=== PATIENT | female | born 1930 | race Caucasian/White ===

== ENCOUNTER → 2016-11-07 | Outpatient (CLI) | payer MEDICARE ==
[~2016-11-07] MED LIST: AMLO5TAB22 PO; B COTAB3 PO; CALC600T34 PO; ECOT81TA2 PO; ESTR1 PO; FENO50TA PO; KETO0.0210 EACH EYE; LEVO88TA2 PO; LEXA10TA PO; LOSA50 PO; LOVA40TA PO; NITR0.4S SL; OMEP20CA5 PO; REST0.05 OU; SUCR1TAB PO; TAB-TAB PO
[2016-11-07 10:30] LABS: AUTOMATED NEUTROPHIL # 2.5 TH/MM3 (1.8-7.7); BASOPHIL # 0.2 TH/MM3 (0-0.2); BASOPHIL % 2.6 % (0.0-2.0); EOSINOPHIL # 0.2 TH/MM3 (0-0.4); EOSINOPHIL % 4.2 % (0.0-4.0); HEMATOCRIT 35.3 % (35.0-46.0); HEMO FLAGS DIFF FINAL; LYMPH % 37.6 % (9.0-44.0); LYMPHOCYTE # 2.2 TH/MM3 (1.0-4.8); MEAN CELL VOLUME 87.8 FL (80.0-100.0); MEAN CORPUSCULAR HEMOGLOBIN 29.2 PG (27.0-34.0); MEAN CORPUSCULAR HGB CONC 33.3 % (32.0-36.0); MONO % 12.7 % (0.0-8.0); NEUT % 42.9 % (16.0-70.0); PLATELET COUNT 271 TH/MM3 (150-450); RED BLOOD COUNT 4.02 MIL/MM3 (4.00-5.30); RED CELL DISTRIBUTION WIDTH 13.9 % (11.6-17.2); WHITE BLOOD COUNT 5.9 TH/MM3 (4.0-11.0)
--- NOTE | 2016-11-07 19:36 | EKG ---
Date Performed: 11/07/2016 Time Performed: 10:16:37 PTAGE: 85 years EKG: SINUS BRADYCARDIA BORDERLINE ECG PREVIOUS TRACING : 11/17/2010 22.31 Compared to prior tracing no significant change DOCTOR: Buddy Kinsey Interpretating Date/Time 11/07/2016 19:34:20
== END ==
LOC: CLAB 09:47
PROVIDERS: ATTEND Surgery
DX: C50.919 Malignant neoplasm of unspecified site of unspecified female breast (principal); R00.1 Bradycardia, unspecified
CPT/HCPCS: 36415; 85025; 93005

== ENCOUNTER 2016-11-14 22:32 | Emergency (ER) | payer MEDICARE ==
[~2016-11-14] VITALS: Ht 165.1 cm; Wt 68.0 kg
[~2016-11-14 22:32] MED LIST changes: -BUPIVACAINE HCL PF 0.25% 30 ML VIAL ONE; -BUPIVACAINE HCL PF 0.5% 30 ML VIAL ONE; -BUPIVACAINE/EPINEPHRINE 0.5% PF 30 ML VIAL ONE; -ISOSULFAN BLUE 50 MG/5 ML VIAL SQ ONE; -KETOROLAC TROMETHAMINE 30 MG/ML (IVP) VIAL ONE; -LACTATED RINGER'S 1000 ML INJ 1,000 ML ONE; -MIDAZOLAM HCL 2 MG/2 ML VIAL ONE; -ONDANSETRON HCL 4 MG/2 ML VIAL IV PUSH ONE; -ONDANSETRON HCL 4 MG/2 ML VIAL ONE; -PROPOFOL 200 MG/20 ML AMP IV ONE; -SODIUM CHLORIDE 0.9% INJ 10 ML ONE; -ceFAZolin 2 GM PREMIX 50 ML ONE; -oxyCODONE/ACETAMINOPHEN 5 MG/325 MG TAB ONE
[2016-11-14 22:36] VITALS: BP 203/83; PULSE 68; RESP 14; TEMP 98; O2SAT 96
--- NOTE | 2016-11-14 23:23 | PD ---
HPI Chief Complaint: Bleeding Time Seen by Provider: 22:55 Travel History International Travel<30 days: No Contact w/Intl Traveler<30days: No Traveled to known affect area: No History of Present Illness HPI 85-year-old female complains of bleeding from her surgical site on the left chest. Patient has history of breast cancer status post left-sided mastectomy this afternoon around 1:30. Patient was discharged home and started noticed increasing bleeding from the left chest surgical site. Patient otherwise denies any chest pain or shortness of breath. Patient has a drain in place. PFSH Past Medical History Asthma: No Autoimmune Disease: No Blood Disorders: No Anxiety: No Depression: No Heart Rhythm Problems: No Cancer: Yes (BREAST) Cardiovascular Problems: Yes (CABGx2 ) High Cholesterol: Yes Chemotherapy: No Chest Pain: Yes Congestive Heart Failure: No COPD: No Diabetes: No Diminished Hearing: No Endocrine: Yes Gastrointestinal Disorders: Yes GERD: Yes Glaucoma: No Genitourinary: Yes (bladder lifted) Headaches: No Hepatitis: No Hiatal Hernia: No Hypertension: No Kidney Stones: No Medical other: Yes (GERD) Musculoskeletal: Yes Neurologic: No Psychiatric: No Reproductive: No Respiratory: No Immunizations Current: Yes Myocardial Infarction: Yes (secondary to clot or plaque during LAD angioplasty) Radiation Therapy: No Renal Failure: No Seizures: No Sickle Cell Disease: No Sleep Apnea: Yes Thyroid Disease: Yes (hypothyroid ) Ulcer: No Tetanus Vaccination: > 5 Years Influenza Vaccination: Yes Past Surgical History Abdominal Surgery: Yes (nelson, appy) AICD: No Appendectomy: Yes Body Medical Devices: n/a Cardiac Surgery: Yes (cabg 1991, 1993, stent 2001 coded) Cholecystectomy: Yes Coronary Artery Bypass Graft: Yes Coronary Stent: Yes (1x) Ear Surgery: No Endocrine Surgery: Yes Eye Surgery: Yes (RIGHT CATARACT SX) Gynecologic Surgery: Yes (hysterectomy; 09/03 COLPORRHAPHY AND ANTERIOR REPAIR) Hysterectomy: Yes Neurologic Surgery: Yes (LUMBAR LAMINECTOMY ) Oral Surgery: Yes (full dental extraction 1952) Pacemaker: No Thoracic Surgery: Yes (left masectomy 10/2016) Tonsillectomy: Yes Other Surgery: Yes Social History Alcohol Use: Yes Tobacco Use: Yes (quit 12 yrs ago;smoked 1pk/day x35 yrs) Substance Use: No Allergies-Medications (Allergen,Severity, Reaction): Coded Allergies: No Known Allergies (Verified , 11/14/16) Reported Meds & Prescriptions Reported Meds & Active Scripts Active Reported Restasis (Cyclosporine) 0.05 % Emu 1 Drop OU BID Lovastatin 40 Mg Tab 2 Tab PO DAILY Losartan Potassium 50 Mg Tab 1 Tab PO DAILY Amlodipine Besylate 5 mg (Amlodipine Besylate) 5 Mg Tab 1 Tab PO DAILY Lexapro (Escitalopram Oxalate) 10 Mg Tab 10 Mg PO DAILY Levothyroxine 88 mcg (Levothyroxine Sodium) 88 Mcg Tab 88 Mcg PO DAILY Carafate 1 Gm Tab (Sucralfate) 1 Gm Tab 1 Gm PO QID Take with water on an empty stomach. To reduce the potential of adversely affecting the absorption of other drugs, take other drugs 2 hours prior to Sucralfate. Zaditor (Ketotifen Fumarate (Ophth)) 0.025 % Garret 1 Drop EACH EYE BID B Complex (Vitamin B Complex) Tab 1 Cap PO DAILY Prilosec 20 mg (Omeprazole) 20 Mg Capcr 20 Mg PO DAILY Nitrostat (Nitroglycerin) 0.4 Mg Subl 0.4 Mg SL PRN 1 TAB SL EVERY 5 MINS X 3 PRN CHEST PAIN Tricor (Fenofibrate) 145 Mg Tab 145 Mg PO DAILY Calcium 600 Mg Tab 600 Mg PO BID Ecotrin (Aspirin) 81 Mg Tabec 81 Mg PO DAILY Estrace (Estradiol) 1 Mg Tab 1 Mg PO DAILY Multivitamin (Multivitamins) 1 Tab Tab 1 Tab PO DAILY Review of Systems General / Constitutional: No: Fever Eyes: No: Visual changes HENT: No: Headaches Cardiovascular: No: Chest Pain or Discomfort Respiratory: No: Shortness of Breath Gastrointestinal: No: Abdominal Pain Genitourinary: No: Dysuria Musculoskeletal: No: Pain Skin: No Rash Neurologic: No: Weakness Psychiatric: No: Depression Endocrine: No: Polydipsia Hematologic/Lymphatic: No: Easy Bruising Physical Exam Narrative GENERAL: Well-nourished, well-developed patient. SKIN: Warm and dry. HEAD: Normocephalic. EYES: No scleral icterus. No injection or drainage. NECK: Supple, trachea midline. No JVD or lymphadenopathy. CARDIOVASCULAR: Regular rate and rhythm without murmurs, gallops, or rubs. RESPIRATORY: Breath sounds equal bilaterally. No accessory muscle use. GASTROINTESTINAL: Abdomen soft, non-tender, nondistended. MUSCULOSKELETAL: No cyanosis, or edema. BACK: Nontender without obvious deformity. No CVA tenderness. Examination of the chest wall reveals a surgical wound on the left chest with sutures in place. Drain in place and draining well. No active bleeding. Data Data Last Documented VS Vital Signs Date Time Temp Pulse Resp B/P Pulse Ox O2 Delivery O2 Flow Rate FiO2 11/14/16 22:36 98.0 68 14 203/83 96 Room Air MDM Medical Decision Making Medical Screen Exam Complete: Yes Emergency Medical Condition: Yes Differential Diagnosis Differential diagnosis including wound check, bleeding problem. Narrative Course 85-year-old female is here for bleeding from surgical wound. Status post left mastectomy this afternoon. The wound is draining well. No evidence of active bleeding. Dressing was changed. 23:30 PM. I spoke with Dr. Hodge. Advised to follow up with her in the office. Diagnosis Primary Impression: Encounter for post surgical wound check Patient Instructions: General Instructions Additional Instructions: Wound care daily. Follow-up with personal physician and surgeon. Return if increasing bleeding. Med/Other Pt SpecificInfo: No Change to Meds Disposition: 01 DISCHARGE HOME Condition: Stable Dustin Perea MD Nov 14, 2016 23:23
== END 2016-11-15 00:33 | disposition home or self-care (01) ==
LOC: NEPC 22:32
DX: Z48.3 Aftercare following surgery for neoplasm (principal); C50.912 Malignant neoplasm of unspecified site of left female breast
CPT/HCPCS: 99282

== ENCOUNTER → 2016-11-14 | Day surgery (SDC) | payer MEDICARE ==
[~2016-11-14] MED LIST changes: +BUPIVACAINE HCL PF 0.25% 30 ML VIAL ONE; +BUPIVACAINE HCL PF 0.5% 30 ML VIAL ONE; +BUPIVACAINE/EPINEPHRINE 0.5% PF 30 ML VIAL ONE; +ISOSULFAN BLUE 50 MG/5 ML VIAL SQ ONE; +KETOROLAC TROMETHAMINE 30 MG/ML (IVP) VIAL ONE; +LACTATED RINGER'S 1000 ML INJ 1,000 ML ONE; +MIDAZOLAM HCL 2 MG/2 ML VIAL ONE; +ONDANSETRON HCL 4 MG/2 ML VIAL IV PUSH ONE; +ONDANSETRON HCL 4 MG/2 ML VIAL ONE; +PROPOFOL 200 MG/20 ML AMP IV ONE; +SODIUM CHLORIDE 0.9% INJ 10 ML ONE; +ceFAZolin 2 GM PREMIX 50 ML ONE; +oxyCODONE/ACETAMINOPHEN 5 MG/325 MG TAB ONE
--- NOTE | 2016-11-14 15:54 | TN ---
cc: ALENA DODSON DATE OF SURGERY: 11/14/2016 PRINCIPAL DIAGNOSIS Left breast cancer multifocal PROCEDURE PERFORMED Left mastectomy and left axillary sentinel lymph node biopsy. SURGEON Alena Dodson MD ANESTHESIA General via LMA device. INDICATION The patient is an 85-year-old female with newly diagnosed multifocal left breast cancer. She has opted for mastectomy without reconstruction and now presents for the procedure. FINDINGS AT THE TIME OF SURGERY: There was a palpable induration in the upper outer portion of the left breast. Three sentinel lymph nodes were identified. Number 1 had a count of 6,665 and was 1+ blue, #2 had a count of 126 and was not blue and #3 had a count of 120 and was not blue. Touch prep analysis was not performed. PROCEDURE PERFORMED After informed consent was obtained and site verification was performed, the patient was brought to the radiology suite where she underwent peritumoral radionuclide injection. She was then brought to the major operating room where she underwent general anesthesia via LMA device. She was given a single dose of IV Ancef and sequential compression hose were placed. The left breast and arm were prepped and draped in sterile fashion, 5 cc of half-strength Lymphazurin were injected in the subareolar left breast and a 5-minute massage was performed. A classic elliptical mastectomy incision was marked out and 200 cc of tumescent solution mixed with 30 cc of Marcaine with epinephrine were then infiltrated circumferentially around the breast in the plane between the subcutaneous fat and anterior breast fascia. Sharp dissection was performed in the same plane between the subcutaneous fat and anterior breast fascia superiorly to the clavicle, medially to the parasternal area, laterally to the axilla and inferiorly to the anterior rectus sheath. The breast was then dissected off the pectoralis muscle using electrocautery to include the clavipectoral fascia with the specimen. The specimen was oriented with the skin anterior, one short suture superiorly, and one long suture laterally. Good hemostasis was noted on the left chest wall. The clavipectoral fascia was then divided and the level I axilla was entered through the mastectomy incision. The latissimus dorsi muscle and thoracodorsal neurovascular bundle as well as the intercostal brachial, axillary, and long thoracic were all identified and remained intact throughout the dissection. Some upper level I lymph nodes were identified near the axillary vein and these were carefully dissected free from surrounding structures using the harmonic scalpel with the counts as noted. Good hemostasis was noted and the lymph nodes were sent for permanent pathologic evaluation. The axillary wound was closed using interrupted 3-0 Vicryl and 4-0 Monocryl subcuticular suture. Steri-Strips and sterile dressings were applied to both wounds. The patient tolerated the procedure well with an estimated blood loss that was minimal and she was extubated in the operating room and brought to the recovery room in good condition. All sponge and needle counts were correct at the conclusion of the case. MD ERICKA Lipscomb/JENNIFER /3:20 PM /3:31 PM
== END | disposition home or self-care (01) ==
LOC: ESDC 09:39
PROVIDERS: ATTEND Surgery
DX: C50.412 Malignant neoplasm of upper-outer quadrant of left female breast (principal); Z48.3 Aftercare following surgery for neoplasm
CPT/HCPCS: 00400; 01610; 19303; 38525; 38792; 88307; 88309; 99282; J0690; J1885; J2250; J2405; J3010; J7120; Q9968

== ENCOUNTER → 2016-12-14 | Outpatient (CLI) | payer MEDICARE ==
[2016-12-14 11:06] LABS: AUTOMATED NEUTROPHIL # 2.8 TH/MM3 (1.8-7.7); BASOPHIL # 0.1 TH/MM3 (0-0.2); BASOPHIL % 2.5 % (0.0-2.0); EOSINOPHIL # 0.3 TH/MM3 (0-0.4); EOSINOPHIL % 5.2 % (0.0-4.0); HEMATOCRIT 34.5 % (35.0-46.0); HEMO FLAGS DIFF FINAL; LYMPH % 32.4 % (9.0-44.0); LYMPHOCYTE # 1.8 TH/MM3 (1.0-4.8); MEAN CELL VOLUME 85.1 FL (80.0-100.0); MEAN CORPUSCULAR HEMOGLOBIN 29.3 PG (27.0-34.0); MEAN CORPUSCULAR HGB CONC 34.5 % (32.0-36.0); MONO % 10.6 % (0.0-8.0); NEUT % 49.3 % (16.0-70.0); PLATELET COUNT 334 TH/MM3 (150-450); RED BLOOD COUNT 4.05 MIL/MM3 (4.00-5.30); RED CELL DISTRIBUTION WIDTH 13.8 % (11.6-17.2); WHITE BLOOD COUNT 5.6 TH/MM3 (4.0-11.0)
[2016-12-14 11:27] LABS: ALT (GPT) 30 U/L (10-53); ANION GAP 7 MEQ/L (5-15); AST (GOT) 27 U/L (15-37); BICARBONATE 28.4 MEQ/L (21.0-32.0); BLOOD UREA NITROGEN 13 MG/DL (7-18); CHLORIDE 99 MEQ/L (98-107); GLOMERULAR FILTRATION RATE 48 ML/MIN (>89); GLUCOSE,FASTING 97 MG/DL (74-99); POTASSIUM 4.1 MEQ/L (3.5-5.1); SODIUM (NA) 134 MEQ/L (136-145)
[2016-12-14 11:36] LABS: ALKALINE PHOSPHATASE 20 U/L (45-117); FREE T4 0.99 NG/DL (0.76-1.46); HDL CHOLESTEROL 55.2 MG/DL (40.0-60.0); TOTAL BILIRUBIN ADULT 0.4 MG/DL (0.2-1.0)
[2016-12-14 11:45] LABS: LDL CHOLESTEROL 79 MG/DL (0-99)
== END ==
LOC: CLAB 10:21
PROVIDERS: ATTEND Internal Medicine Interventional Cardiology
DX: I11.9 Hypertensive heart disease without heart failure (principal); I65.23 Occlusion and stenosis of bilateral carotid arteries; I25.10 Atherosclerotic heart disease of native coronary artery without angina pectoris; E78.2 Mixed hyperlipidemia; Z79.899 Other long term (current) drug therapy; I10 Essential (primary) hypertension; E03.2 Hypothyroidism due to medicaments and other exogenous substances
CPT/HCPCS: 36415; 80053; 80061; 84439; 84443; 84480; 85025

== ENCOUNTER → 2017-03-26 | Outpatient (CLI) | payer MEDICARE ==
[~2017-03-26] MED LIST changes: +REST0.05 EACH EYE
[2017-03-26 11:43] LABS: AUTOMATED NEUTROPHIL # 4.2 TH/MM3 (1.8-7.7); BASOPHIL # 0.1 TH/MM3 (0-0.2); BASOPHIL % 1.2 % (0.0-2.0); EOSINOPHIL # 0.2 TH/MM3 (0-0.4); EOSINOPHIL % 2.9 % (0.0-4.0); HEMATOCRIT 33.1 % (35.0-46.0); HEMO FLAGS DIFF FINAL; MEAN CELL VOLUME 86.4 FL (80.0-100.0); MEAN CORPUSCULAR HEMOGLOBIN 28.5 PG (27.0-34.0); MONO % 17.3 % (0.0-8.0); NEUT % 63.6 % (16.0-70.0); PLATELET COUNT 345 TH/MM3 (150-450); RED BLOOD COUNT 3.83 MIL/MM3 (4.00-5.30); RED CELL DISTRIBUTION WIDTH 12.7 % (11.6-17.2); WHITE BLOOD COUNT 6.6 TH/MM3 (4.0-11.0)
[2017-03-26 12:25] LABS: FREE T4 1.17 NG/DL (0.76-1.46)
== END ==
LOC: CLAB 10:40
PROVIDERS: ATTEND Family Medicine
DX: E03.2 Hypothyroidism due to medicaments and other exogenous substances (principal); R53.83 Other fatigue; D64.9 Anemia, unspecified
CPT/HCPCS: 36415; 82607; 83540; 84439; 84443; 84480; 85025

== ENCOUNTER → 2017-05-13 | Outpatient (CLI) | payer MEDICARE ==
[~2017-05-13] MED LIST changes: +AMLO5TAB2 PO; -AMLO5TAB22 PO; +ANAS1 PO; +ASPI-147 PO; -B COTAB3 PO; +CALC1TAB87 PO; -CALC600T34 PO; +DENO60P SQ; +DOCU1CAP23 PO; -ECOT81TA2 PO; -ESTR1 PO; -FENO50TA PO; +HYDR25TA5 PO; -KETO0.0210 EACH EYE; -LEXA10TA PO; +LEXA20TA PO; -LOSA50 PO; +LOSA50TA PO; +MULTTAB67 PO; +NITR.3 SL; -NITR0.4S SL; -OMEP20CA5 PO; +OMEP20TA PO; -REST0.05 OU; -SUCR1TAB PO; -TAB-TAB PO; +VITATAB11 PO
[2017-05-13 10:57] LABS: AUTOMATED NEUTROPHIL # 2.5 TH/MM3 (1.8-7.7); BASOPHIL # 0.1 TH/MM3 (0-0.2); BASOPHIL % 1.7 % (0.0-2.0); EOSINOPHIL # 0.2 TH/MM3 (0-0.4); EOSINOPHIL % 4.6 % (0.0-4.0); HEMATOCRIT 33.2 % (35.0-46.0); HEMO FLAGS DIFF FINAL; LYMPH % 23.5 % (9.0-44.0); LYMPHOCYTE # 1.1 TH/MM3 (1.0-4.8); MEAN CELL VOLUME 85.7 FL (80.0-100.0); MEAN CORPUSCULAR HEMOGLOBIN 28.1 PG (27.0-34.0); MEAN CORPUSCULAR HGB CONC 32.8 % (32.0-36.0); MONO % 16.2 % (0.0-8.0); PLATELET COUNT 279 TH/MM3 (150-450); RED BLOOD COUNT 3.87 MIL/MM3 (4.00-5.30); RED CELL DISTRIBUTION WIDTH 14.5 % (11.6-17.2); WHITE BLOOD COUNT 4.6 TH/MM3 (4.0-11.0)
== END ==
LOC: CLAB 10:33
PROVIDERS: ATTEND Family Medicine
DX: D64.9 Anemia, unspecified (principal); R53.83 Other fatigue
CPT/HCPCS: 36415; 82607; 83540; 85025

== ENCOUNTER → 2017-05-24 | Outpatient (CLI) | payer MEDICARE ==
[2017-05-24 10:07] LABS: FREE T4 1.04 NG/DL (0.76-1.46); HDL CHOLESTEROL 57.1 MG/DL (40.0-60.0); INDIRECT BILIRUBIN 0.3 MG/DL (0.0-0.8); TOTAL BILIRUBIN ADULT 0.4 MG/DL (0.2-1.0)
== END ==
LOC: CLAB 09:03
PROVIDERS: ATTEND Family Medicine
DX: E78.2 Mixed hyperlipidemia (principal); E03.2 Hypothyroidism due to medicaments and other exogenous substances; Z79.899 Other long term (current) drug therapy
CPT/HCPCS: 36415; 80061; 80076; 84439; 84443; 84480

== ENCOUNTER → 2017-06-05 | Outpatient (CLI) | payer MEDICARE ==
[2017-06-05 10:24] LABS: BICARBONATE 26.2 MEQ/L (21.0-32.0); POTASSIUM 4.1 MEQ/L (3.5-5.1)
== END ==
LOC: CLAB 09:17
PROVIDERS: ATTEND Internal Medicine Interventional Cardiology
DX: I25.10 Atherosclerotic heart disease of native coronary artery without angina pectoris (principal); I73.9 Peripheral vascular disease, unspecified; I11.9 Hypertensive heart disease without heart failure; E78.2 Mixed hyperlipidemia; I65.23 Occlusion and stenosis of bilateral carotid arteries
CPT/HCPCS: 80048

== ENCOUNTER → 2017-11-19 | Outpatient (CLI) | payer MEDICARE ==
[~2017-11-19] MED LIST changes: -OMEP20TA PO; +OMEP20TA93 PO
[2017-11-19 10:47] LABS: BASOPHIL # 0.1 TH/MM3 (0-0.2); BASOPHIL % 2.5 % (0.0-2.0); EOSINOPHIL # 0.2 TH/MM3 (0-0.4); EOSINOPHIL % 5.6 % (0.0-4.0); HEMATOCRIT 36.6 % (35.0-46.0); HEMOGLOBIN 12.3 GM/DL (11.6-15.3); LYMPH % 28.6 % (9.0-44.0); LYMPHOCYTE # 1.2 TH/MM3 (1.0-4.8); MEAN CELL VOLUME 87.4 FL (80.0-100.0); MEAN CORPUSCULAR HEMOGLOBIN 29.4 PG (27.0-34.0); MEAN CORPUSCULAR HGB CONC 33.7 % (32.0-36.0); MEAN PLATELET VOLUME 7.6 FL (7.0-11.0); MONO % 15.8 % (0.0-8.0); MONOCYTE # 0.7 TH/MM3 (0-0.9); NEUT % 47.5 % (16.0-70.0); PLATELET COUNT 253 TH/MM3 (150-450); RED BLOOD COUNT 4.19 MIL/MM3 (4.00-5.30); RED CELL DISTRIBUTION WIDTH 14.6 % (11.6-17.2); WHITE BLOOD COUNT 4.2 TH/MM3 (4.0-11.0)
[2017-11-19 11:08] LABS: ALBUMIN 3.6 GM/DL (3.4-5.0); AST (GOT) 54 U/L (15-37); BICARBONATE 27.2 MEQ/L (21.0-32.0); BLOOD UREA NITROGEN 11 MG/DL (7-18); CHLORIDE 95 MEQ/L (98-107); CREATININE 0.89 MG/DL (0.50-1.00); GLOMERULAR FILTRATION RATE 60 ML/MIN (>89); GLUCOSE,FASTING 111 MG/DL (74-99); SODIUM (NA) 131 MEQ/L (136-145)
[2017-11-19 11:09] LABS: ALT (GPT) 55 U/L (10-53); CHOLESTEROL 137 MG/DL (120-200); TRIGLYCERIDES 141 MG/DL (42-150)
[2017-11-19 11:18] LABS: ALKALINE PHOSPHATASE 22 U/L (45-117); CHOLESTEROL/ HDL RATIO 2.78 RATIO; FREE T4 1.07 NG/DL (0.76-1.46); HDL CHOLESTEROL 49.2 MG/DL (40.0-60.0); LDL CHOLESTEROL 60 MG/DL (0-99); TOTAL BILIRUBIN ADULT 0.3 MG/DL (0.2-1.0); TOTAL PROTEIN 7.7 GM/DL (6.4-8.2)
[2017-11-19 11:20] LABS: TOTAL T3 131 NG/DL (60-181)
[2017-11-19 11:21] LABS: RHEUMATOID FACTOR SCREEN NEGATIVE (NEGATIVE)
== END ==
LOC: CLAB 10:12
PROVIDERS: ATTEND Family Medicine
DX: E78.2 Mixed hyperlipidemia (principal); E03.2 Hypothyroidism due to medicaments and other exogenous substances; I10 Essential (primary) hypertension; D64.9 Anemia, unspecified; Z79.899 Other long term (current) drug therapy
CPT/HCPCS: 36415; 80053; 80061; 84439; 84443; 84480; 85025; 86430

== ENCOUNTER 2018-08-31 12:31 | Observation (INO) ==
[2018-08-31] MEDS ORDERED: Sodium Chlor 0.9% Inj 500 ML IV.SIG SCH (13:00)
--- NOTE | 2018-08-31 13:18 | XR ---
EXAM DATE: 08/31/2018 1:12 PM EST AGE/SEX: 87 years / Female INDICATIONS: Syncopal episode today. Patient denies chest pain or shortness of breath. CLINICAL DATA: This is the patient's initial encounter. Patient reports that signs and symptoms have been present for 1 day and indicates a pain score of 0/10. MEDICAL/SURGICAL HISTORY: Hypertension. CABG. COMPARISON: [facility], XR CHEST PA AND LAT, 02/24/2018. . FINDINGS: There is no appreciable pleural effusion for technique. Heart and mediastinum are unrema rkable. There is scarring and pleural thickening in the apices bilaterally. In the left apex of the lung, however there is parenchymal process not present on the older exams may represent superimposed pneumonia. COPD changes are seen. CONCLUSION: There is COPD with apical scarring bilaterally worse on the left with probable superimpos ed pneumonia left upper lobe in the apex of the lung. Follow up is suggested with repeat chest x-ray or noncontrast chest CT in 4-6 weeks after appropriate clinical therapy. Electronically signed by: Jose Miguel Mohamud MD Board Certified Radiologist 08/31/2018 1:17 PM EST
[2018-08-31 13:27] LABS: Baso % (Auto) 0.6 % (0.0-2.0); Eos # (Auto) 0.1 th/mm3 (0.0-0.4); Eos % (Auto) 1.6 % (0.0-4.0); Hemoglobin 11.2 gm/dL (11.6-15.3); Lymph # (Auto) 1.5 th/mm3 (1.0-4.8); Lymph % (Auto) 20.7 % (9.0-44.0); Mean Corpuscular HGB Conc 33.9 % (32.0-36.0); Mean Corpuscular Hemoglobin 30.2 pg (27.0-34.0); Mean Corpuscular Volume 89.1 fL (80.0-100.0); Mono # (Auto) 0.9 th/mm3 (0.0-0.9); Neut # (Auto) 4.8 th/mm3 (1.8-7.7); Neut % (Auto) 65.1 % (16.0-70.0); Platelet Count 278 th/mm3 (150-450); Red Blood Count 3.71 mil/mm3 (4.00-5.30); Red Cell Distribution Width 14.3 % (11.6-17.2); White Blood Count 7.4 th/mm3 (4.0-11.0)
--- NOTE | 2018-08-31 13:34 | ED ---
HPI General Chief Complaint: Syncope Stated Complaint: Syncope Time Seen by Provider: 08/31/18 12:34 Source: patient and EMS Mode of arrival: EMS Limitations: no limitations History of Present Illness HPI narrative: 87-year-old female who presents to the ED for evaluation of syncopal episode. 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 Per patient this has happened once before when she was admitted to the hospital after she had surgery. She states that he felt kind of similar to that. She denies hitting her head and per EVAC reports she was helped into the floor. She herself does not recall how long she was out and now she states that she feels fine other than feeling somewhat sleepy. She does take Plavix. She denies any urinary or bowel movement issues. Her only complaint is that she has been having some cough that has been ongoing for a couple of months now. She has a history of breast cancer and had radiation and surgery. She denies any chemotherapy at this time. She denies any nausea or vomiting. No fevers chills or sweats. No diarrhea. No bleeding. No pain. She does have a history of heart disease. Related Data Home Medications Medication Instructions Recorded Confirmed cilostazol 100 mg PO BID 08/31/18 08/31/18 clopidogrel [Plavix] 75 mg PO DAILY 08/31/18 08/31/18 Allergies Allergy/AdvReac Type Severity Reaction Status Date / Time No Known Allergies Allergy Verified 08/31/18 12:49 Review of Systems ROS: all other systems reviewed are negative [facility] Medical History Medical History Breast CA (Acute) DVT (deep venous thrombosis) (Acute) History of hysterectomy (Acute) Hypertension (Acute) Hypothyroidism (Acute) Surgical History Surgical History Hx of cholecystectomy (Acute) Hx of heart bypass surgery (Acute) Hx of tonsillectomy (Acute) Social History Social History Substance History: No History of Abuse Smoking Status: Former smoker How Often Do You Have a Drink Containing Alcohol: Monthly or less Recent Travel in [facility] within the Last 8 Weeks: No Recent Out of Country Travel within the Last 8 Weeks: No Immunization History Tetanus Immunization: Unsure Exam Narrative Exam Narrative: GENERAL: Well-appearing SKIN: Focused skin assessment warm/dry. HEAD: Atraumatic. Normocephalic. EYES: Pupils equal and round. No scleral icterus. No injection or drainage. ENT: No nasal bleeding or discharge. Mucous membranes pink and moist. Tongue is midline. No uvula deviation. NECK: Trachea midline. No JVD. CARDIOVASCULAR: Regular rate and rhythm. No murmur appreciated. RESPIRATORY: No accessory muscle use. Clear to auscultation. Breath sounds equal bilaterally. GASTROINTESTINAL: Abdomen soft, non-tender, nondistended. Hepatic and splenic margins not palpable. MUSCULOSKELETAL: No obvious deformities. No clubbing. No cyanosis. No edema. Full range of motion of the upper and lower extremities bilaterally. 2+ pulses bilaterally. No lumbar, thoracic, cervical spine tenderness to palpation. NEUROLOGICAL: Awake and alert. No obvious cranial nerve deficits. Motor grossly within normal limits. Normal speech. PSYCHIATRIC: Appropriate mood and affect; insight and judgment normal. Course Initial Documented Vital Signs Temperature 98.2 F 08/31/18 12:40 Pulse Rate 70 08/31/18 12:40 Respiratory Rate 18 08/31/18 12:40 Blood Pressure 160/72 H 08/31/18 12:40 Pulse Oximetry 97 08/31/18 12:40 Last Documented Vital Signs Temperature 98.2 F 08/31/18 12:40 Pulse Rate 74 08/31/18 12:46 Respiratory Rate 18 08/31/18 12:40 Blood Pressure 160/72 H 08/31/18 12:40 Pulse Oximetry 98 08/31/18 12:46 Medical Decision Making MDM Narrative Medical decision making narrative: 87-year-old female who presents to the ED for evaluation of syncope. Patient was properly examined was found to have signs and symptoms consistent with syncope. Labs and imaging were ordered. Labs and imaging were positive for what appears to be hyponatremia as well as orthostatic hypotension. Because of her age and history of recommendations for admission for further evaluation. Chest x-ray did show an abnormality on the left lower lung. He believes that it may be pneumonia but at this time because of this and recent syncope my attending recommends CTA to rule out PE as well as to see what this mass could be. Patient has been chronically hyponatremic but her sodium is now at 124. This is new for her. Case was discussed with Dr. Pearl who agrees to admission to his service. Medical Screen Exam Complete: Yes Emergency Medical Condition: Yes Differential Diagnosis Differential Diagnosis: Electron abnormality versus syncope versus anemia versus bleeding versus orthostatic hypotension versus ACS Medical Records Medical records reviewed: Yes I reviewed the patient's medical records. Lab Data Lab results reviewed: Yes I reviewed the patient's lab results. Result diagrams: 08/31/18 13:00 08/31/18 13:00 Lab Results 08/31/18 08/31/18 Range/Units 13:00 13:00 WBC 7.4 (4.0-11.0) th/mm3 RBC 3.71 L (4.00-5.30) mil/mm3 Hgb 11.2 L (11.6-15.3) gm/dL Hct 33.0 L (35.0-46.0) % MCV 89.1 (80.0-100.0) fL MCH 30.2 (27.0-34.0) pg MCHC 33.9 (32.0-36.0) % RDW 14.3 (11.6-17.2) % Plt Count 278 (150-450) th/mm3 MPV 7.0 (7.0-11.0) fL Prelim Diff (Auto) Slide review pending Neut % (Auto) 65.1 (16.0-70.0) % Lymph % (Auto) 20.7 (9.0-44.0) % Blount % (Auto) 12.0 H (0.0-8.0) % Eos % (Auto) 1.6 (0.0-4.0) % Baso % (Auto) 0.6 (0.0-2.0) % Neut # (Auto) 4.8 (1.8-7.7) th/mm3 Lymph # (Auto) 1.5 (1.0-4.8) th/mm3 Blount # (Auto) 0.9 (0.0-0.9) th/mm3 Eos # (Auto) 0.1 (0.0-0.4) th/mm3 Baso # (Auto) 0.0 (0.0-0.2) th/mm3 WBC Differential . Diff Scan Auto diff confirmed Differential Comment . Sodium 124 L* (136-145) meq/L Potassium 4.2 (3.5-5.1) meq/L Chloride 92 L (98-107) meq/L Carbon Dioxide 22.7 (21.0-32.0) meq/L Anion Gap 9 (5-15) meq/L BUN 11 (7-18) mg/dL Creatinine 1.02 H (0.50-1.00) mg/dL Estimated GFR 52 L (>89) mL/min Random Glucose 117 H (74-106) mg/dL Calcium 8.8 (8.5-10.1) mg/dL Magnesium 1.9 (1.5-2.5) mg/dL Total Bilirubin 0.4 (0.2-1.0) mg/dL AST 86 H (15-37) U/L ALT 48 (10-53) U/L Alkaline Phosphatase 24 L (45-117) U/L Troponin I Less than 0.02 L (0.02-0.05) ng/mL Total Protein 7.9 (6.4-8.2) g/dL Albumin 3.6 (3.4-5.0) g/dL Imaging Data Attestation: I personally reviewed and interpreted this imaging study as follows : Radiologist's impression: Chest X-Ray 08/31/18 12:42 CONCLUSION: There is COPD with apical scarring bilaterally worse on the left with probable superimposed pneumonia left upper lobe in the apex of the lung. Follow up is suggested with repeat chest x-ray or noncontrast chest CT in 4-6 weeks after appropriate clinical therapy. Head CT 08/31/18 12:42 CONCLUSION: Slight chronic small vessel ischemic and atrophic changes. ECG Data Attestation: I personally reviewed and interpreted this ECG as follows: Interpretation: EKG shows sinus rhythm with no sign of acute ischemia and arrhythmia. Ventricular rate of 69 bpm, GA interval 164 ms. Read by me and attending. No ST elevation noted. Discharge Plan Discharge Disposition Patient Disposition: ED Admit(ED Internal Use Only) Discharge Order Discharge Orders: ED Use Only Admit Order (Routine); Ordered 08/31/18 Ordered By: Stan Jay Discharge Details Diagnosis: Syncope, Orthostatic hypertension, Acute hyponatremia Physicians Team ED Provider: Cherelle Maravilla ED Midlevel Provider: Stan Jay Primary Care Provider: UNKNOWN, Attending Provider: Wesley Pearl Discharge Interventions Interventions: Vital Signs Last Done: 08/31/18 12:40 Status ED Status: Admitted Observation Patient
--- NOTE | 2018-08-31 13:38 | CT ---
EXAM DATE: 08/31/2018 1:33 PM EST AGE/SEX: 87 years / Female INDICATIONS: Syncope CLINICAL DATA: This is the patient's initial encounter. Patient reports that signs and symptoms have been present for 1 day and indicates a pain score of 0/10. MEDICAL/SURGICAL HISTORY: Carcinoma, breast. Hypertension. Hysterectomy. Cholecystectomy. Tonsil lectomy. RADIATION DOSE: 56.35 CTDI (mGy) COMPARISON: No prior exams available for comparison. TECHNIQUE: CT of the head without contrast. Using automated exposure control and adjustment of the mA and/or kV according to patient size, radiation dose was kept as low as reasonably achievable to ob tain optimal diagnostic quality images. DICOM format image data is available electronically for revi ew and comparison. FINDINGS: There is no evidence for intracranial hemorrhage, mass effect, mass lesions, or edema. The visualize d bony structures appear intact. Slight degree of brain atrophy is seen. Slight periventricular whit e matter changes are seen nonspecific mostly consistent with chronic small vessel ischemic changes. There are no signs of acute infarction for technique. CONCLUSION: Slight chronic small vessel ischemic and atrophic changes. Electronically signed by: Jose Miguel Mohamud MD Board Certified Radiologist 08/31/2018 1:36 PM EST
[2018-08-31 13:42] LABS: Anion Gap 9 meq/L (5-15)
[2018-08-31 13:46] LABS: Alanine Aminotransferase 48 U/L (10-53); Albumin 3.6 g/dL (3.4-5.0); Alkaline Phosphatase 24 U/L (45-117); Aspartate Aminotransferase 86 U/L (15-37); Blood Urea Nitrogen 11 mg/dL (7-18); Calcium 8.8 mg/dL (8.5-10.1); Carbon Dioxide 22.7 meq/L (21.0-32.0); Chloride 92 meq/L (98-107); Glomerular Filtration Rate 52 mL/min (>89); Glucose,Random 117 mg/dL (74-106); Magnesium 1.9 mg/dL (1.5-2.5); Total Protein 7.9 g/dL (6.4-8.2)
[2018-08-31 13:47] LABS: Potassium 4.2 meq/L (3.5-5.1)
[2018-08-31 13:50] LABS: Sodium 124 meq/L (136-145)
[2018-08-31] MEDS ORDERED: Enoxaparin Inj 40 MG/0.4 ML Syringe SQ SCH (14:15)
[2018-08-31 14:40] LABS: Activated Partial Thrombo Time 25.4 sec (23.4-31.7); Prothrombin Time 10.6 sec (9.8-11.6)
[2018-08-31] MEDS: Sod Chloride 0.9% Inj 1,000 ML IV.CONT SCH (15:02)
--- NOTE | 2018-08-31 15:10 | P.HPIM ---
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 She reports that she has had a cough over the last 2 months that she blames on her suppressive chemotherapy, her oncologist explained that this medication did not have a side effect of a cough. She denies any urinary tract symptoms, she denies any recent fevers. On ER workup so far lab work revealed that she is hyponatremic and that she was hypotensive on admission. She denies any nausea vomiting or diarrhea. She denies any chest pain or palpitations. Inpatient Certification Inpatient Certification: I certify that the inpatient services were ordered in accordance with Medicare regulations governing the order. This includes certification that hospital inpatient services are reasonable and necessary and in the case of services not specified as inpatient-only under 42 CFR 419.22(n), that they are appropriately provided as inpatient services in accordance to with the 2-midnight benchmark under 43 CFR 412.3(e) Review of Systems Review of Systems: all other systems reviewed are negative FORMERLY [facility] Medical History Medical History Breast CA (Acute) DVT (deep venous thrombosis) (Acute) History of hysterectomy (Acute) Hypertension (Acute) Hypothyroidism (Acute) Surgical History Surgical History Hx of cholecystectomy (Acute) Hx of heart bypass surgery (Acute) Hx of tonsillectomy (Acute) Family History Family History Other Hypertension Social History Social History Substance History: No History of Abuse Smoking Status: Former smoker How Often Do You Have a Drink Containing Alcohol: Monthly or less Recent Travel in [place] within the Last 8 Weeks: No Recent Out of Country Travel within the Last 8 Weeks: No Immunization History Tetanus Immunization: Unsure Medications and Allergies Allergies Allergy/AdvReac Type Severity Reaction Status Date / Time No Known Allergies Allergy Verified 08/31/18 12:49 Home Medications Medication Instructions Recorded Confirmed Type cilostazol 100 mg PO BID 08/31/18 08/31/18 History clopidogrel [Plavix] 75 mg PO DAILY 08/31/18 08/31/18 History Active Medications: Active Medications Al Hydroxide/Mg Hydroxide (Milk Of Lola Alan) 30 ml PO Q12H PRN PRN Reason: Mild Constipation Enoxaparin Sodium (Lovenox Inj) 40 mg SQ Q24H [facility] Sodium Chloride (Ns Inj) 1,000 mls @ 75 mls/hr IV.CONT .[id number] ANDREY Ondansetron HCl (Zofran Inj) 4 mg IV.PUSH Q6H PRN PRN Reason: NAUSEA OR VOMITING Sodium Chloride (Ns Flush) 2 ml IV.FLUSH BID ANDREY Physical Exam Vital signs: Last Vital Signs Temp 98.2 F 08/31/18 12:40 Pulse 74 08/31/18 12:46 Resp 18 08/31/18 12:40 BP 160/72 H 08/31/18 12:40 Pulse Ox 98 08/31/18 12:46 Intake & Output 08/29/18 08/30/18 08/31/18 09/01/18 06:59 06:59 06:59 06:59 Intake Total 500 / 500 Balance 500 / 500 Weight 70.76 kg Narrative: GENERAL: AAOx3, no acute distress, adequate nutrition SKIN: Warm and dry, no rashes. HEAD: Atraumatic. Normocephalic. EYES: Pupils equal, round, reactive to light. No scleral icterus. No injection or drainage. ENT: No nasal bleeding or discharge. Moist mucous membranes. Nonerythematous oropharynx. NECK: Trachea midline. No JVD. Thyroid size within normal limits. CARDIOVASCULAR: Regular rate and rhythm. No murmur, no gallops, no rubs. RESPIRATORY: Clear and equal to auscultation bilaterally. No crackles, no wheezes. No accessory muscle use. GASTROINTESTINAL: Abdomen soft, non-tender, nondistended, normal active bowel sounds. Hepatic and splenic margins not palpable. MUSCULOSKELETAL: Extremities without clubbing or cyanosis. No obvious deformities. No edema. NEUROLOGICAL: Awake and alert. No obvious cranial nerve deficits. Motor grossly within normal limits. No focal deficits. Five out of 5 muscle strength in the arms and legs. Normal speech. PSYCHIATRIC: Appropriate mood and affect; insight and judgment normal. Results Labs CBC & Chem 7: 08/31/18 13:00 08/31/18 13:00 Imaging Impressions Chest X-Ray 08/31/18 12:42 CONCLUSION: There is COPD with apical scarring bilaterally worse on the left with probable superimposed pneumonia left upper lobe in the apex of the lung. Follow up is suggested with repeat chest x-ray or noncontrast chest CT in 4-6 weeks after appropriate clinical therapy. Head CT 08/31/18 12:42 CONCLUSION: Slight chronic small vessel ischemic and atrophic changes. Caprini VTE Risk Assessment Caprini VTE Risk Assessment: Moderate/High Risk (score >= 2) Caprini Risk Assessment Model: Point Value = 1 Point Value = 2 Point Value = 3 Point Value = 5 Age 41-60 Minor surgery BMI > 25 kg/m2 Swollen legs Varicose veins or History of unexplained or recurrent spontaneous Oral contraceptives or hormone replacement Sepsis (< 1 month) Serious lung disease, including pneumonia (< 1 month) Abnormal pulmonary function Acute myocardial infarction Congestive heart failure (< 1 month) History of inflammatory bowel disease Medical patient at bed rest Age 61-74 Arthroscopic surgery Major open surgery (> 45 min) Laparoscopic surgery (> 45 min) Malignancy Confined to bed (> 72 hours) Immobilizing plaster cast Central venous access Age >= 75 History of VTE Family history of VTE Factor V Leiden Prothrombin [id number] Lupus anticoagulant Anticardiolipin antibodies Elevated serum homocysteine Heparin-induced thrombocytopenia Other congenital or acquired thrombophilia Stroke (< 1 month) Elective arthroplasty Hip, pelvis, or leg fracture Acute spinal cord injury (< 1 month) Prophylaxis Regimen: Total Risk Factor Score Risk Level Prophylaxis Regimen 0-1 Low Early ambulation 2 Moderate Order ONE of the following: *Sequential Compression Device (SCD) *Heparin 5000 units SQ BID 3-4 Higher Order ONE of the following medications: *Heparin 5000 units SQ TID *Enoxaparin/Lovenox 40 mg SQ daily (WT < 150 kg, CrCl > 30 mL/min) *Enoxaparin/Lovenox 30 mg SQ daily (WT < 150 kg, CrCl > 10-29 mL/min) *Enoxaparin/Lovenox 30 mg SQ BID (WT < 150 kg, CrCl > 30 mL/min) AND/OR *Sequential Compression Device (SCD) 5 or more Highest Order ONE of the following medications: *Heparin 5000 units SQ TID (Preferred with Epidurals) *Enoxaparin/Lovenox 40 mg SQ daily (WT < 150 kg, CrCl > 30 mL/min) *Enoxaparin/Lovenox 30 mg SQ daily (WT < 150 kg, CrCl > 10-29 mL/min) *Enoxaparin/Lovenox 30 mg SQ BID (WT < 150 kg, CrCl > 30 mL/min) AND *Sequential Compression Device (SCD) Assessment and Plan Plan Syncopal episode Etiology unclear, possible infection, possible hyponatremia, possible hypotension Chest x-ray shows possible early pneumonia and left lower lobe 2D echocardiogram and carotid Doppler both pending CTA of chest is pending to rule out PE Consider hyponatremia Hyponatremia, hypotension Start on normal saline at 75 mL an hour Recheck sodium level with a.m. labs There are no blood pressure medicines reported in her home meds Possible early pneumonia CTA of chest should help to delineate whether this is a true pneumonia She currently has no leukocytosis, no fevers, but does have a persisting cough If CTA supports pneumonia and she should be covered with antibiotics h/o CABG, CAD Patient recently underwent femoral bypass surgery in her left leg for PVD She has had 2 separate open heart surgeries, in 1993 and again in 2003 She denies any active chest pain or shortness of breath h/o urinary tract infection Patient denies symptoms but given her history and presentation, urinalysis is ordered DVT Prophylaxis Lovenox
[2018-08-31 15:23] LABS: Bilirubin,Urine Negative (Negative); Color,Urine Yellow (Yellw/Straw); Glucose,Urine (UA) Negative (Negative); Leukocyte Esterase,Urine Negative (Negative); Mucus,Urine Few /lpf (Occasional); Nitrite,Urine Negative (Negative); Specific Gravity,Urine 1.005 (1.002-1.035); Squamous Epithelial Cell,Urine 1 /hpf (0-5)
[2018-08-31 15:24] LABS: Clarity,Urine Clear (Clear)
--- NOTE | 2018-08-31 16:04 | CT ---
EXAM DATE: 08/31/2018 3:57 PM EST AGE/SEX: 87 years / Female INDICATIONS: Short of Breath CLINICAL DATA: This is the patient's initial encounter. Patient reports that signs and symptoms have been present for 1 day and indicates a pain score of 0/10. MEDICAL/SURGICAL HISTORY: Carcinoma, breast. Deep venous thrombosis. Hypertension. CABG. Cholecy stectomy. Hysterectomy. RADIATION DOSE: 9.08 CTDI (mGy) COMPARISON: No prior exams available for comparison. TECHNIQUE: Volumetric scanning was performed using a multi-row detector CT scanner during bolus infu awa of 70ML ml Omnipaque 350 (iohexol) nonionic water-soluble contrast as a single exam dose. The d brandee was post processed with a variety of visualization algorithms including full volume maximum inten sity projection and sliding thin slab reformation. Using automated exposure control and adjustment o f the mA and/or kV according to patient size, radiation dose was kept as low as reasonably achievable to obtain optimal diagnostic quality images. DICOM format image data is available electronically fo r review and comparison. FINDINGS: There is dense airspace consolidation left upper lobe versus for pneumonia. Irregular density is seen in right upper lobe marked and labeled on the images probable scar. Coronary artery calcifications a re seen typically seen with coronary artery disease and clinical correlation and evaluation is sugges lisa. There is no pleural effusion. No significant pathological adenopathy is seen within the mediasti num. The liver appears slightly fatty. There is no evidence of PE for technique. CONCLUSION: Dense airspace consolidation left upper lobe highly suspicious for pneumonia and probable scar right upper lobe. Follow-up is suggested with noncontrast chest CT in 3 months after appropriate clinical t herapy. Electronically signed by: Jose Miguel Mohamud MD Board Certified Radiologist 08/31/2018 4:03 PM EST
[2018-09-01] MEDS: Sod Chloride 0.9% Inj 1,000 ML IV.CONT SCH (05:15)
[2018-09-01 05:32] LABS: Baso # (Auto) 0.1 th/mm3 (0.0-0.2); Baso % (Auto) 1.8 % (0.0-2.0); Eos # (Auto) 0.1 th/mm3 (0.0-0.4); Eos % (Auto) 2.7 % (0.0-4.0); Hematocrit 31.3 % (35.0-46.0); Hemoglobin 10.7 gm/dL (11.6-15.3); Lymph # (Auto) 1.3 th/mm3 (1.0-4.8); Lymph % (Auto) 32.6 % (9.0-44.0); Mean Corpuscular HGB Conc 34.3 % (32.0-36.0); Mean Corpuscular Hemoglobin 29.7 pg (27.0-34.0); Mean Corpuscular Volume 86.8 fL (80.0-100.0); Mean Platelet Volume 6.8 fL (7.0-11.0); Mono # (Auto) 0.7 th/mm3 (0.0-0.9); Mono % (Auto) 16.7 % (0.0-8.0); Neut # (Auto) 1.9 th/mm3 (1.8-7.7); Neut % (Auto) 46.2 % (16.0-70.0); Platelet Count 274 th/mm3 (150-450); Red Blood Count 3.61 mil/mm3 (4.00-5.30); Red Cell Distribution Width 14.5 % (11.6-17.2); White Blood Count 4.1 th/mm3 (4.0-11.0)
[2018-09-01] MEDS ORDERED: Levothyroxine 88 MCG Tablet PO SCH (06:00)
[2018-09-01 06:02] LABS: Calcium 8.5 mg/dL (8.5-10.1); Carbon Dioxide 22.9 meq/L (21.0-32.0); Potassium 3.9 meq/L (3.5-5.1)
[2018-09-01 06:47] VITALS: O2SAT 97
[2018-09-01] MEDS ORDERED: Anastrozole 1 MG Tablet PO SCH (09:00)
[2018-09-01] MEDS ORDERED: Pantoprazole Sodium 20 MG DR Tablet PO SCH (09:00)
--- NOTE | 2018-09-01 10:12 | US ---
EXAM DATE: 09/01/2018 10:00 AM EST AGE/SEX: 87 years / Female INDICATIONS: Syncope. CLINICAL DATA: This is the patient's initial encounter. Patient reports that signs and symptoms have been present for 1 day and indicates a pain score of 0/10. MEDICAL/SURGICAL HISTORY: Hypertension. Hypothyroidism. Breast cancer. Deep vein thrombosis. Hysterectomy. Cholecystectomy. CABG. Tonsillectomy. COMPARISON: No prior exams available for comparison. VELOCITY PARAMETERS: ICA/CCA Ratio: Right 1.1 , Left 1.3 ICA: Right 101 cm/sec, Left 130 cm/sec CCA: Right 88 cm/sec, Left 103 cm/sec ECA: Right 120 cm/sec, Left 110 cm/sec Vertebral: Right 68 cm/sec antegrade, Left 56 cm/sec antegrade FINDINGS: RIGHT CAROTID: There is no evidence for a hemodynamically significant carotid stenosis. Minimal int imal hyperplasia is present with scattered calcific plaque. LEFT CAROTID: There is no evidence for a hemodynamically significant carotid stenosis. Minimal inti mal hyperplasia is present with scattered calcific plaque. Flow is antegrade in both vertebral arteries. There are no ancillary masses or adenopathy. CONCLUSION: Negative examination for a hemodynamically significant carotid stenosis. Aleksey Floyd MD FACR Electronically signed by: Aleksey Floyd MD Board Certified Radiologist 09/01/2018 10:10 AM EST
--- NOTE | 2018-09-01 10:21 | P.PN ---
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- and her HCTZ was recently decreased to 1/2 tab daily no diarrhea Physical Exam Vital signs: Vital Signs 08/31/18 12:40 08/31/18 12:46 08/31/18 15:30 Temperature 98.2 F Pulse Rate 70 74 84 Respiratory Rate 18 15 Blood Pressure 160/72 H 184/74 H Pulse Oximetry 97 98 98 08/31/18 17:04 08/31/18 20:00 08/31/18 20:30 Temperature 97.9 F 97.7 F Pulse Rate 66 59 L 59 L Respiratory Rate 18 18 Blood Pressure 118/58 L 143/66 H Pulse Oximetry 96 97 08/31/18 23:45 09/01/18 00:00 09/01/18 01:34 Temperature 97.2 F L Pulse Rate 61 66 Respiratory Rate 18 15 Blood Pressure 150/65 H Pulse Oximetry 95 09/01/18 04:40 09/01/18 09:16 Temperature 97.4 F L Pulse Rate 59 L Respiratory Rate 17 Blood Pressure 157/70 H Pulse Oximetry 97 97 Intake & Output 08/31/18 09/01/18 09/01/18 18:59 06:59 18:59 Intake Total 500 / 500 1600 / 1600 Balance 500 / 500 1600 / 1600 Weight 70.76 kg 70.7 kg Intake: IV 500 / 500 1000 / 1000 NS Inj 1,000 ML @ 75 mls/hr IV. 1000 / 1000 CONT .[id number] ANDREY Rx#:[id number] NS Inj 500 ML @ 1000 mls/hr IV. 500 / 500 SIG BOLUS ANDREY Rx#:[id number] Oral 600 / 600 Other: # Voids 1 3 Date of Last Bowel Movement 08/31/18 08/31/18 # Bowel Movements 0 Weight On Admission 70.76 kg Narrative: GENERAL: AAOx3, no acute distress, oriented x 3 SKIN: Warm and dry, no rashes. HEAD: Atraumatic. Normocephalic. EYES: Pupils equal, round, reactive to light. No scleral icterus. No injection or drainage. Moist mucous membranes. Nonerythematous oropharynx. NECK: Trachea midline. No JVD. CARDIOVASCULAR: Regular rate and rhythm. RESPIRATORY: Clear and equal to auscultation bilaterally. No crackles, no wheezes. No accessory muscle use. GASTROINTESTINAL: Abdomen soft, non-tender, , normal active bowel sounds. Hepatic and splenic margins not palpable. MUSCULOSKELETAL: Extremities without clubbing or cyanosis. No obvious deformities. No edema. NEUROLOGICAL: Awake and alert. No obvious cranial nerve deficits. Motor grossly within normal limits. No focal deficits. Five out of 5 muscle strength in the arms and legs. Normal speech. PSYCHIATRIC: Appropriate mood and affect; insight and judgment normal. gait steady Results - Labs CBC & Chem 7: 09/01/18 04:53 09/01/18 04:53 Laboratory Results - last 24 hr 08/31/18 08/31/18 08/31/18 13:00 13:00 14:10 WBC 7.4 RBC 3.71 L Hgb 11.2 L Hct 33.0 L MCV 89.1 MCH 30.2 MCHC 33.9 RDW 14.3 Plt Count 278 MPV 7.0 Prelim Diff (Auto) Slide review pending Neut % (Auto) 65.1 Lymph % (Auto) 20.7 [place] % (Auto) 12.0 H Eos % (Auto) 1.6 Baso % (Auto) 0.6 Neut # (Auto) 4.8 Lymph # (Auto) 1.5 [place] # (Auto) 0.9 Eos # (Auto) 0.1 Baso # (Auto) 0.0 WBC Differential . Diff Scan Auto diff confirmed Differential Comment . PT 10.6 INR 1.0 APTT 25.4 Sodium 124 L* Potassium 4.2 Chloride 92 L Carbon Dioxide 22.7 Anion Gap 9 BUN 11 Creatinine 1.02 H Estimated GFR 52 L Random Glucose 117 H Calcium 8.8 Magnesium 1.9 Total Bilirubin 0.4 AST 86 H ALT 48 Alkaline Phosphatase 24 L Troponin I Less than 0.02 L Total Protein 7.9 Albumin 3.6 TSH Urine Color Urine Clarity Urine pH Ur Specific [place] Urine Protein Urine Glucose (UA) Urine Ketones Urine Occult Blood Urine Nitrate Urine Bilirubin Urine Urobilinogen Ur Leukocyte Esterase Urine RBC Urine WBC Ur Squamous Epith Cells Urine Mucus Micro UA Comment Ur Microscopic Review Urine Culture Comments 08/31/18 09/01/18 09/01/18 15:00 04:53 04:53 WBC 4.1 RBC 3.61 L Hgb 10.7 L Hct 31.3 L MCV 86.8 MCH 29.7 MCHC 34.3 RDW 14.5 Plt Count 274 MPV 6.8 L Prelim Diff (Auto) Neut % (Auto) 46.2 Lymph % (Auto) 32.6 [place] % (Auto) 16.7 H Eos % (Auto) 2.7 Baso % (Auto) 1.8 Neut # (Auto) 1.9 Lymph # (Auto) 1.3 [place] # (Auto) 0.7 Eos # (Auto) 0.1 Baso # (Auto) 0.1 WBC Differential . Diff Scan Differential Comment Auto diff final PT INR APTT Sodium 132 L Potassium 3.9 Chloride 101 D Carbon Dioxide 22.9 Anion Gap 8 BUN 7 Creatinine 0.74 Estimated GFR 75 L Random Glucose 96 Calcium 8.5 Magnesium Total Bilirubin AST ALT Alkaline Phosphatase Troponin I Total Protein Albumin TSH Urine Color Yellow Urine Clarity Clear Urine pH 7.0 Ur Specific [place] 1.005 Urine Protein Negative Urine Glucose (UA) Negative Urine Ketones Negative Urine Occult Blood Negative Urine Nitrate Negative Urine Bilirubin Negative Urine Urobilinogen Less than 2 Ur Leukocyte Esterase Negative Urine RBC 1 Urine WBC 1 Ur Squamous Epith Cells 1 Urine Mucus Few H Micro UA Comment Culture not ind Ur Microscopic Review Not Reportable Urine Culture Comments Culture not ind 09/01/18 04:53 WBC RBC Hgb Hct MCV MCH MCHC RDW Plt Count MPV Prelim Diff (Auto) Neut % (Auto) Lymph % (Auto) [place] % (Auto) Eos % (Auto) Baso % (Auto) Neut # (Auto) Lymph # (Auto) [place] # (Auto) Eos # (Auto) Baso # (Auto) WBC Differential Diff Scan Differential Comment PT INR APTT Sodium Potassium Chloride Carbon Dioxide Anion Gap BUN Creatinine Estimated GFR Random Glucose Calcium Magnesium Total Bilirubin AST ALT Alkaline Phosphatase Troponin I Total Protein Albumin TSH 2.410 Urine Color Urine Clarity Urine pH Ur Specific [place] Urine Protein Urine Glucose (UA) Urine Ketones Urine Occult Blood Urine Nitrate Urine Bilirubin Urine Urobilinogen Ur Leukocyte Esterase Urine RBC Urine WBC Ur Squamous Epith Cells Urine Mucus Micro UA Comment Ur Microscopic Review Urine Culture Comments - Imaging Impressions Chest X-Ray 08/31/18 12:42 CONCLUSION: There is COPD with apical scarring bilaterally worse on the left with probable superimposed pneumonia left upper lobe in the apex of the lung. Follow up is suggested with repeat chest x-ray or noncontrast chest CT in 4-6 weeks after appropriate clinical therapy. Head CT 08/31/18 12:42 CONCLUSION: Slight chronic small vessel ischemic and atrophic changes. Chest CTA 08/31/18 13:55 CONCLUSION: Dense airspace consolidation left upper lobe highly suspicious for pneumonia and probable scar right upper lobe. Follow-up is suggested with noncontrast chest CT in 3 months after appropriate clinical therapy. Carotid Doppler Study 09/01/18 00:00 CONCLUSION: Negative examination for a hemodynamically significant carotid stenosis. 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 Syncopal episode Etiology unclear, possible infection, possible hypotension Chest x-ray shows possible early pneumonia and left lower lobe 2D echocardiogram and carotid Doppler both pending CTA of chest negtive for PE Hyponatremia- d/w patient- by history of chronic hyponatremia - TSH done is normal - on discussion with her she is taking HCTZ 25 mg daily and due to low NA was decreased to 1/2 tab daily - disucssed with her to Discontinue this altogether TSH normal - fluid restriction 1.2 L /day - recheck BMP in 3- 4 days Possible early pneumonia - patient states having cough for 4 days- no fever CTA of chest should help to delineate whether this is a true pneumonia She currently has no leukocytosis, no fevers, but does have a persisting cough - we will treat witnh zithromax 500 mg po today then 250 mg daily for 4 days - repeat CXR in 2 weeks as OP h/o CABG, CAD Hypertension Patient recently underwent femoral bypass surgery in her left leg for PVD She has had 2 separate open heart surgeries, in 1993 and again in 2003 She denies any active chest pain or shortness of breath - d/w her DC HCTZ - continue on her cozaar + amloidpine-as d/w her- HCTZ DC - OP ff up with PCP - she is h/o hypothryoidism - continue on synthroid 88 mcg daily history of breast canncer- OP ff up with her oncologist Dr. Farr DVT Prophylaxis Lovenox
[2018-09-01 10:35] VITALS: RESP 16
[2018-09-01] MEDS ORDERED: Azithromycin 250 MG Tablet PO ONE (11:00)
--- NOTE | 2018-09-01 11:27 | ECHRPT ---
Indication: SYNCOPE CONCLUSIONS Very technically difficult study. The left ventricular systolic function is grossly normal on limited imaging. In limited windows, ap pears the ejection fraction is around 55%. Mild concentric left ventricular hypertrophy. There was limited left ventricular wall motion assessment due to poor endocardial visualization. Trace mitral valve regurgitation. There is trace tricuspid valve regurgitation. BP: / HR: Rhythm: Sinus MEASUREMENTS (Male / Female) Normal Values Technical Quality:Very technically difficult study 2D ECHO LV Diastolic Diameter PLAX 4.1 cm 4.2 - 5.9 / 3.9 - 5.3 cm LV Systolic Diameter PLAX 2.9 cm IVS Diastolic Thickness 1.4 cm 0.6 - 1.0 / 0.6 - 0.9 cm LVPW Diastolic Thickness 1.2 cm 0.6 - 1.0 / 0.6 - 0.9 cm LV Relative Wall Thickness 0.6 RV Internal Dim ED PLAX 2.4 cm DOPPLER AV Peak Velocity 193.0 cm/s AV Peak Gradient 14.9 mmHg LVOT Peak Velocity 107.0 cm/s LVOT Peak Gradient 4.6 mmHg Mitral E Point Velocity 105.0 cm/s Mitral A Point Velocity 94.3 cm/s Mitral E to A Ratio 1.1 TR Peak Velocity 132.0 cm/s TR Peak Gradient 7.0 mmHg Right Atrial Pressure 10.0 mmHg Pulmonary Artery Systolic Pressu 17.0 mmHg Right Ventricular Systolic Press 17.0 mmHg FINDINGS LEFT VENTRICLE Normal left ventricular size. Mild concentric left ventricular hypertrophy. The left ventricular systolic function is grossly normal on limited imaging. In limited windows, ap pears the ejection fraction is around 55%. There was limited left ventricular wall motion assessment due to poor endocardial visualization. RIGHT VENTRICLE The right ventricle was not well visualized. LEFT ATRIUM The left atrial size is normal. RIGHT ATRIUM The right atrium is not well visualized. ATRIAL SEPTUM The interatrial septum not well visualized. AORTA The aortic root and proximal ascending aorta are not well visualized. MITRAL VALVE Grossly normal Trace mitral valve regurgitation. AORTIC VALVE The aortic valve is not well visualized. No aortic valve stenosis. No aortic valve regurgitation. TRICUSPID VALVE The tricuspid valve is not well visualized. There is trace tricuspid valve regurgitation. The estimated pulmonary arterial pressure is 17 mmHg. PULMONARY VALVE The pulmonary valve is not well visualized. Julien Herrmann DO (Electronically Signed) Final Date:01 September 2018 11:26
[2018-09-01 12:29] VITALS: BP 160/69; PULSE 66; TEMP 97.7
--- NOTE | 2018-09-01 21:24 | ECG ---
Date Performed: 08/31/2018 Time Performed: 12:58:18 PTAGE: 87 years EKG: Sinus rhythm NORMAL ECG PREVIOUS TRACING : 11/07/2016 10.16 Since the previous tracing, no significant change noted DOCTOR: Manpreet Bañuelos Interpretating Date/Time 09/01/2018 21:22:37
[2018-09-02] MEDS ORDERED: Azithromycin 250 MG Tablet PO SCH (09:00)
== END 2018-09-01 12:38 | disposition home or self-care (01) ==
LOC: NEPE 12:31 → INTOOBSV 14:13 → NEDA 14:30 → N06 16:49 → N07 09-01 10:56
PROVIDERS: ADMIT Internal Medicine; ATTEND Internal Medicine
DX: Z90.710 Acquired absence of both cervix and uterus; R55 Syncope and collapse; I10 Essential (primary) hypertension; E87.1 Hypo-osmolality and hyponatremia; Z79.890 Hormone replacement therapy; Z82.49 Family history of ischemic heart disease and other diseases of the circulatory system; Z95.1 Presence of aortocoronary bypass graft; Z79.899 Other long term (current) drug therapy; C50.919 Malignant neoplasm of unspecified site of unspecified female breast; Z79.02 Long term (current) use of antithrombotics/antiplatelets; J44.0 Chronic obstructive pulmonary disease with (acute) lower respiratory infection; Z87.891 Personal history of nicotine dependence; J18.9 Pneumonia, unspecified organism; E03.9 Hypothyroidism, unspecified; Z90.49 Acquired absence of other specified parts of digestive tract; I73.9 Peripheral vascular disease, unspecified; I25.10 Atherosclerotic heart disease of native coronary artery without angina pectoris
CPT/HCPCS: 70450; 71010; 71045; 71275; 80048; 80053; 81001; 83735; 84443; 84484; 85025; 85610; 85730; 90760; 93005; 93308; 93880; 96360; 96361; 96372; 99285; G0378; J1650; J7030; J7040; Q9967